=== PATIENT | female | born 1950 | race African-American/Black ===

== ENCOUNTER 2020-06-27 12:29 | Emergency (ER) | payer OTHER ==
[~2020-06-27] VITALS: Ht 170.2 cm; Wt 63.0 kg
[2020-06-27 12:40] VITALS: Ht 170.2 cm; Wt 63.0 kg
--- NOTE | 2020-06-27 12:48 | NUR ---
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
--- NOTE | 2020-06-27 13:13 | NUR ---
IV ESTABLISHED, BLOOD DRAWN TO CT SCAN
[2020-06-27 13:28] LABS: BASOPHIL % 0.4 % (0-2); PLATELET COUNT 180 x10^3mcL (130-400)
[2020-06-27 13:30] LABS: RED CELL DISTRIBUTION WIDTH 16.3 % (11.5-14.5)
[2020-06-27 14:03] LABS: CALCIUM 9.3 mg/dL (8.5-10.1); CARBON DIOXIDE 26.7 mmol/L (21-32); CHLORIDE SERUM 108 mmol/L (98-107); CREATININE SERUM 1.4 mg/dL (0.6-1.0); GFR1 40 mL/min; GLUCOSE SERUM 81 mg/dL (74-106); POTASSIUM SERUM 3.5 mmol/L (3.5-5.1); SODIUM SERUM 145 mmol/L (136-145)
[2020-06-27 14:15] LABS: ALBUMIN 4.1 g/dL (3.4-5.0); ALKALINE PHOSPHATASE 65 U/L (46-116); ALT/SGPT 15 U/L (14-59); AST/SGOT 24 U/L (15-37); BILIRUBIN TOTAL 0.5 mg/dL (0.20-1.00); LIPASE 129 IU/L (73-393); MAGNESIUM 2.3 mg/dL (1.8-2.4); T4(THYROXINE) 5.4 ug/dL (4.7-13.3); TOTAL PROTEIN, SERUM 7.5 g/dL (6.4-8.2)
[2020-06-27 14:16] LABS: CHOLESTEROL 225 mg/dL (<200); HDL CHOLESTEROL 81 mg/dL (40-60)
--- NOTE | 2020-06-27 14:18 | NUR ---
PT FOUND CRYING IN ROOM ,C/O RT UPPER ABDOMINAL PAIN,ABDOMEN SOFT ACTIVE BOWEL SOUNDS,
[2020-06-27] MEDS ORDERED: ATIVAN0.5 M1 PO (15:30)
[2020-06-27] MEDS ORDERED: SYNTHROID PO (15:31)
[2020-06-27] MEDS ORDERED: TENORMIN50 MG PO (15:31)
--- NOTE | 2020-06-27 15:32 | NUR ---
WALKED STEADY TOBATHROOM URINE SENT TO LAB, SPOKE TO HER SON STATED SHE WAS NORMAL ONE MONTH AGO LIVING IN [place],,2 WEEKS AGO BROUGHT HER TO LIVE ITH HER 2 DSONS,NOTICED SHE ID DISORIENTED AND AT TIMED AGRESSIVE, HAS PSTD AFTER HER ONE YEAR AGO
[2020-06-27 15:36] VITALS: BP 186/109
[2020-06-27] MEDS ORDERED: COZAAR25 M1 PO (15:45)
[2020-06-27 15:48] LABS: microscopic required? YES; urine erythrocyte TRACE (NEGATIVE)
[2020-06-27 16:14] LABS: AMPHETAMINE QUAL UR NONE DETECTED (See below)
--- NOTE | 2020-06-27 16:27 | NUR ---
SON ANUJ CLARK PHONE NO [phone], REFUSING ADMISSION, SPOKE TO SON WILL COME TO ER TO CONVIENE HER FOR ADMISSION PT IS DISORIENTED TO DATE TIME PLACE,STATES SHE IS IN [facility],
[2020-06-27 17:00] LABS: PHOSPHOROUS 2.9 mg/dL (2.5-4.9)
[2020-06-27 17:05] LABS: T3 TOTAL 0.64 ng/mL
[2020-06-27 17:08] LABS: FREE T4 0.69 ng/dL (0.76-1.46); FREE THYROXINE INDEX 1.5 ug/dL (1.4-4.5); T4(THYROXINE) 5.1 ug/dL (4.7-13.3)
[2020-06-27 17:11] LABS: CHOLESTEROL/HDL RATIO 2.8
--- NOTE | 2020-06-27 17:22 | NUR ---
PT OFFERED WARM BLANKET, PT WALKING IN [place], REDIRECTED TO ROOM 8, TV TURNED ON. PT REQUESTING TO SIGN AMA.
--- NOTE | 2020-06-27 17:57 | NUR ---
PT REFUSING ADMISSION, SON CALLED AGAIN,PT REFUSING TO STAY IN ROOM WANDERING AROUND STATES WILL SIGN AMA TO GO HOME, SEVERAL TIMES TRIED TO REORIENT AND DISCUSS HER MEDICAL CONDITION ,DR WRIGHT SPOKE TO PT, STILL REFUSING TO STAY IN ROOM OR ADMITTED,
--- NOTE | 2020-06-27 18:32 | NUR ---
PT WALKED OUTSIDE ER ,WILL NOT COME IN, SON ARRIVED TRYING TO CONVINCE MOTHER TO COME IN,
--- NOTE | 2020-06-27 19:21 | NUR ---
RECEIVED REPORT FROM RANDOLPH MAYEN. PT. NOT IN THE HOSPITAL ROOM OR BED." SHE WALKED OUT OF THE HOSPITAL WITH IV IN HER LEFT AC. THE SON WAS NOTIFIED AND WILL BRING PT. BACK IN ER ". WILL BE WAITING AND WILL DC THE IV.
--- NOTE | 2020-06-27 19:35 | NUR ---
TRIED TO CALL SON NO ANSWER, WILLY HURTADO CALLED .PT HAS IV IN HER ARM, UNABLE TO FIND PT OR SON, LETICIAD
== END 2020-06-27 19:38 | disposition left against medical advice (07) ==
LOC: ED 12:29 → DU 15:48 → ED 19:38
PROVIDERS: Emergency Medicine; Family Medicine
DX: R41.0 Disorientation, unspecified (principal); R45.1 Restlessness and agitation; I10 Essential (primary) hypertension; Z98.890 Other specified postprocedural states; Z20.828 Contact with and (suspected) exposure to other viral communicable diseases
CPT/HCPCS: 83880; 84439; G0480; J7030; Q0092